=== PATIENT | male | born 1945 | race Two or more races ===

== ENCOUNTER → 2019-01-31 11:10 | Outpatient (CLI) | payer OTHER | END | disposition home or self-care (01) | LOC: EKG 11:10 | DX: I10 Essential (primary) hypertension (principal) ==

== ENCOUNTER → 2019-01-31 | Outpatient (CLI) | payer OTHER ==
[~2019-01-31] MED LIST: DILTIAZEM PO
== END | disposition home or self-care (01) ==
LOC: RAD 10:14
DX: R15.9 Full incontinence of feces (principal); K62.89 Other specified diseases of anus and rectum

== ENCOUNTER 2019-02-14 05:15 | Day surgery (SDC) | payer OTHER ==
[2019-02-14] MEDS ORDERED: ULTRACET PO (09:21)
== END 2019-02-14 12:15 | disposition home or self-care (01) ==
LOC: CIR.AMB 05:15
DX: R15.9 Full incontinence of feces (principal)
CPT/HCPCS: 64581; C1778

== ENCOUNTER 2019-03-03 05:55 | Day surgery (SDC) | payer OTHER ==
[~2019-03-03 05:55] MED LIST changes: +ULTRACET PO
== END 2019-03-03 11:25 | disposition home or self-care (01) ==
LOC: CIR.AMB 05:55
DX: R15.9 Full incontinence of feces (principal)